=== PATIENT | female | born 1980 | race Caucasian/White ===

== ENCOUNTER 2020-04-08 16:33 | Emergency (ER) | payer OTHER ==
[2020-04-08] MEDS ORDERED: CYCLOBENZAPRINE 10 MG TABLET PO STA (17:46)
[2020-04-08] MEDS ORDERED: KETOROLAC 60 MG/2 ML VIAL IM STA (17:46)
--- NOTE | 2020-04-08 18:02 | ED Physician Documentation ---
PD HPI CHEST PAIN - Stated complaint Stated Complaint: CP - Chief complaint Chief Complaint: Abd Pain - History obtained from History obtained from: Patient - Additional information Additional information: Comes emergency department complaining of pain under her left breast. She states that this started this afternoon and that it has become worse throughout the day. She states it is made worse by stretching her chest or moving her left arm. She denies shortness of breath. She has a history of GERD for which she has been followed by her primary care physician and for which she takes Prilosec. She states this does not feel like that. Patient states that she goes for walks and gets other exercise every day and does not have any chest pain with this. She was a smoker about 15 years ago, but now, smokes a cigarette occasionally. Patient does note that she Uses marijuana in various forms on a daily basis, and this does seem to make the pain better. She does not know if this is because it helps her with anxiety. Patient denies fever or chills, cough, or sore throat. She denies any other complaints at this time. No personal history of blood clots. No family history of blood clots or [place]/coronary artery disease at a young age. Review of Systems Ten Systems: 10 systems reviewed and negative Constitutional: reports: Reviewed and negative Eyes: reports: Reviewed and negative Ears: reports: Reviewed and negative Nose: reports: Reviewed and negative Throat: reports: Reviewed and negative Cardiac: reports: Chest pain / pressure Respiratory: reports: Reviewed and negative GI: reports: Reviewed and negative : reports: Reviewed and negative Skin: reports: Reviewed and negative Musculoskeletal: reports: Reviewed and negative Neurologic: reports: Reviewed and negative Psychiatric: reports: Reviewed and negative Endocrine: reports: Reviewed and negative Immunocompromised: reports: Reviewed and negative PD PAST MEDICAL HISTORY - Present Medications Home Medications: Ambulatory Orders Medication Instructions Recorded Confirmed Cyclobenzaprine [Flexeril] 10 mg PO TID PRN #10 tablet 04/08/20 - Allergies Allergies/Adverse Reactions: Allergies Allergy/AdvReac Type Severity Reaction Status Date / Time amoxicillin Allergy Unknown Verified 04/08/20 16:49 Penicillins Allergy Unknown Verified 04/08/20 16:49 PD ED PE NORMAL - Vitals Vital signs reviewed: Yes - General General: Alert and oriented X 3, No acute distress (Is mildly anxious otherwise in no apparent distress.), Well developed/nourished - HEENT HEENT: Atraumatic, PERRL, EOMI, Moist mucous membranes - Neck Neck: Supple, no meningeal sign - Cardiac Cardiac: RRR, No murmur, Strong equal pulses - Respiratory Respiratory: No respiratory distress, Clear bilaterally - Abdomen Abdomen: Soft, Non tender, Non distended - Derm Derm: Normal color, Warm and dry, No rash - Extremities Extremities: No deformity, No edema, No calf tenderness / cord - Neuro Neuro: Alert and oriented X 3, Other (Grossly) - Psych Psych: Normal affect, Other (Patient appears slightly anxious) Results - Vitals Vitals: Oxygen O2 Source Room air - EKG (time done) 1643 Rate: Rate (enter#) (71) Rhythm: NSR [place]: Normal Intervals: Normal MS, QRS normal QRS: Normal Ischemia: Normal ST segments. No: T wave inversion Compare to prior EKG: Old EKG unavailable Computer interpretation: Agree with computer PD MEDICAL DECISION MAKING - ED course Complexity details: reviewed results, re-evaluated patient, considered differential, d/w patient ED course: The patient had an EKG done in the emergency department per protocol which appeared normal. I discussed with the patient that her symptoms point most strongly to a musculoskeletal skeletal etiology of her pain. She is very low risk for coronary artery disease, and PERC score is also low. The patient's symptoms do not indicate a more serious cause of chest pain. 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 The patient has stated that she is uncomfortable and has requested something for the discomfort. She has been given Toradol and Flexeril in the emergency department. We have discussed the need for follow-up, as well as the usual indications for return. Departure - Departure Disposition: 01 Home, Self Care Clinical Impression: Chest wall pain Condition: Stable Instructions: ED Chest Pain Costochondritis, ED Strain Chest Wall Prescriptions: Cyclobenzaprine [Flexeril] 10 mg PO TID PRN #10 tablet PRN Reason: Spasms Comments: Your EKG looks good today. There is no evidence on your exam or in your history of serious cause of chest pain. Please follow-up with your primary care physician as needed. 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 You may use ibuprofen and Tylenol to help with the pain. You may also take the muscle relaxer as needed. Discharge Date/Time: 04/08/20 18:44
[2020-04-08 18:45] VITALS: BP 147/98
== END 2020-04-08 18:44 | disposition home or self-care (01) ==
LOC: ED 16:33
DX: R07.89 Other chest pain (principal); Z87.891 Personal history of nicotine dependence
CPT/HCPCS: 93005; 96372; 99283; 99284; A9270

== ENCOUNTER 2020-10-22 07:00 | Outpatient (CLI) | payer OTHER | END 2020-10-22 23:59 | disposition home or self-care (01) | LOC: COV 07:00 | PROVIDERS: ATTEND Family Medicine | DX: M79.10 Myalgia, unspecified site (principal); R53.83 Other fatigue; R11.0 Nausea; Z20.822 Contact with and (suspected) exposure to COVID-19 ==

== ENCOUNTER 2021-10-19 08:00 | Outpatient (CLI) | payer OTHER ==
[2021-10-19 19:36] LABS: H. PYLORIS ANTIGEN STL NEGATIVE (Negative)
== END 2021-10-19 23:59 | disposition home or self-care (01) ==
LOC: LAB.S 08:00
PROVIDERS: ATTEND Registered Nurse
DX: R19.7 Diarrhea, unspecified (principal)
CPT/HCPCS: 81599; 83993; 87045; 87177; 87209; 87329; 87338; 87427; 87449

== ENCOUNTER 2022-01-19 18:40 | Outpatient (CLI) | payer OTHER | END 2022-01-19 18:41 | disposition EMS.NT | LOC: EMS 18:40 | DX: L50.9 Urticaria, unspecified (principal) ==

== ENCOUNTER 2022-01-19 19:45 | Emergency (ER) | payer OTHER ==
[2022-01-19 19:55] VITALS: BP 134/78
[2022-01-19] MEDS ORDERED: predniSONE 20 MG TABLET PO STA (20:19)
--- NOTE | 2022-01-19 20:22 | ED Physician Documentation ---
History of Present Illness - Stated complaint Stated Complaint: HIVES - Chief complaint Chief Complaint: Allergic Rx - Additonal information Additional information: 41-year-old female presents emergency department for evaluation of acute onset hives. She was started on minocycline as well as Flagyl gel on 30 December for rosacea. She began developing hives last night. No history of similar in the past. She has no tongue or lip swelling. No difficulty breathing. She did take Benadryl 50 mg 45 minutes prior to arrival Review of Systems Constitutional: denies: Fever, Chills Throat: reports: Reviewed and negative Cardiac: reports: Reviewed and negative Respiratory: reports: Reviewed and negative GI: reports: Reviewed and negative Skin: reports: Rash (Hives) PD PAST MEDICAL HISTORY - Present Medications Home Medications: Ambulatory Orders Medication Instructions Recorded Confirmed Cyclobenzaprine [Flexeril] 10 mg PO TID PRN #10 tablet 04/08/20 predniSONE [Deltasone] 40 mg PO DAILY 4 Days #8 tablet 01/19/22 - Allergies Allergies/Adverse Reactions: Allergies Allergy/AdvReac Type Severity Reaction Status Date / Time amoxicillin Allergy Unknown Verified 01/19/22 19:50 Penicillins Allergy Unknown Verified 01/19/22 19:50 - Social History Does the pt smoke?: No Smoking Status: Never smoker PD ED PE NORMAL - General General: Alert and oriented X 3, No acute distress, Well developed/nourished - HEENT HEENT: Atraumatic, EOMI, Moist mucous membranes, Pharynx benign - Neck Neck: Supple, no meningeal sign, No adenopathy - Cardiac Cardiac: RRR, No murmur, No gallop - Respiratory Respiratory: No respiratory distress, Clear bilaterally - Abdomen Abdomen: Soft, Non tender - Derm Derm: Normal color, Warm and dry. No: No rash (Generalized hives on torso arms legs and knees.) Results - Vitals Vitals: Vital Signs - 24 hr 01/19/22 19:50 Temperature 36.5 C Heart Rate 80 Respiratory 16 Rate Blood Pressure 134/78 H O2 Saturation 99 Oxygen O2 Source Room air PD MEDICAL DECISION MAKING - ED course Complexity details: considered differential, d/w patient ED course: Well-appearing 41-year-old female presents with generalized hives that began yesterday. She was recently started on minocycline as well as Flagyl gel for rosacea. I suspect its minocycline given a systemic response. No tongue or lip swelling. No dyspnea. Patient is however advised to discontinue both meds. Given the generalized hives that she will be started on prednisone. First dose given tonight in the ER. She is recommended to continue Benadryl and Pepcid twice daily for the next few days. Clinically she does not have a morbilliform drug reaction though if the symptoms change she will return to the ER. Departure - Departure Disposition: 01 Home, Self Care Clinical Impression: Hives Allergic drug reaction Qualifiers: Encounter type: initial encounter Qualified Code(s): T78.40XA - Allergy, unspecified, initial encounter Condition: Stable Record reviewed to determine appropriate education?: Yes Instructions: ED Drug React Allergic Prescriptions: predniSONE [Deltasone] 40 mg PO DAILY 4 Days #8 tablet Comments: You are seen today for hives. As we discussed at the bedside I suspect it is the minocycline that is causing this. However I do recommend that you discontinue the Flagyl gel and the minocycline at this time. 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 Please take Benadryl 25 to 50 mg Twice daily for the next 2 to 3 days. A prescription for prednisone has been sent to the [facility] in [place]. You should take this for an additional 4 days. Right now this reaction appears just to be like hives. It does not appear to be a morbilliform or other drug reaction. If your symptoms change, you develop fevers, difficulty breathing, swelling of your lips or tongue then please return immediately to the ER for second evaluation.
== END 2022-01-19 20:34 | disposition home or self-care (01) ==
LOC: ED 19:45
DX: L50.9 Urticaria, unspecified (principal); R21 Rash and other nonspecific skin eruption; T78.40XA Allergy, unspecified, initial encounter
CPT/HCPCS: 99282; J7512

== ENCOUNTER 2022-03-19 08:00 | Outpatient (CLI) | payer OTHER ==
--- NOTE | 2022-03-19 18:06 | XRAY Report ---
PROCEDURE: Finger(s) RT INDICATIONS: RIGHT 4TH DIGIT PAIN TECHNIQUE: AP hand, 2 views of the fourth and fifth finger(s) acquired. COMPARISON: None FINDINGS: Bones: No fractures or dislocations. No suspicious bony lesions. Soft tissues: No suspicious soft tissue calcifications. IMPRESSION: No evidence of acute bony abnormality of the right fourth finger. Reviewed by: Asad Tristan MD on 03/19/2022 6:04 PM PDT Approved by: Asad Tristan MD on 03/19/2022 6:04 PM PDT Station ID: [id number]
== END 2022-03-19 23:59 | disposition home or self-care (01) ==
LOC: DI.S 08:00
PROVIDERS: ATTEND Physician Assistant
DX: M79.644 Pain in right finger(s) (principal)